=== PATIENT | male | born 1955 | race Hispanic/Latino ===

== ENCOUNTER 2017-06-25 22:43 | Inpatient (IN) | payer MEDICAID ==
--- NOTE | 2017-06-25 23:13 | ED PDOC ---
Arrival/HPI - General Chief Complaint: Palpitations Time Seen by Provider: 06/25/17 23:00 Historian: Patient - History of Present Illness Narrative History of Present Illness (Text): 06/25/17 23:12 A 62 year old male presents to the emergency department complaining of chest pain, "electric pulses that are overcoming his heart", lasting seconds and disappear for the past two months. Patient also reports mucus and dry mouth. Patient doesn't see PMD routinely, unsure of any medical problems. Patient denies any fever, chills or any other complaints at this time. Symptom Onset: Sudden Symptom Course: Unchanged Activities at Onset: Rest Context: Home Past Medical History - Provider Review Nursing Documentation Reviewed: Yes - Psychiatric Hx Substance Use: No Family/Social History - Physician Review Nursing Documentation Reviewed: Yes Family/Social History: No Known Family HX Smoking Status: no Hx Alcohol Use: No Hx Substance Use: No Allergies/Home Meds Allergies/Adverse Reactions: Allergies No Known Allergies Allergy (Verified 06/25/17 22:47) Home Medications: Home Meds Medication Instructions Recorded Confirmed No Known Home Med 06/25/17 06/25/17 Review of Systems - Physician Review All systems were reviewed & negative as marked: Yes - Review of Systems Constitutional: absent: Fevers, Other (chills) Cardiovascular: Chest Pain Physical Exam Vital Signs Reviewed: Yes Vital Signs Temp Pulse Resp BP Pulse Ox 06/25/17 23:53 97.6 F 93 H 18 101/64 100 Appearance: Positive for: Well-Appearing, Non-Toxic, Comfortable Pain Distress: None Mental Status: Positive for: Alert and Oriented X 3 - Systems Exam Head: Present: Atraumatic, Normocephalic Pupils: Present: PERRL Extroacular Muscles: Present: EOMI Conjunctiva: Present: Normal Mouth: Present: Moist Mucous Membranes Neck: Present: Normal Range of Motion Respiratory/Chest: Present: Clear to Auscultation, Good Air Exchange. No: Respiratory Distress, Accessory Muscle Use Cardiovascular: Present: Regular Rate and Rhythm, Normal S1, S2. No: Murmurs Abdomen: Present: Normal Bowel Sounds. No: Tenderness, Distention, Peritoneal Signs Back: Present: Normal Inspection Upper Extremity: Present: Normal Inspection. No: Cyanosis, Edema Lower Extremity: Present: Normal Inspection. No: Edema Neurological: Present: GCS=15, CN II-XII Intact, Speech Normal Skin: Present: Warm, Dry, Normal Color. No: Rashes Psychiatric: Present: Alert, Oriented x 3, Normal Insight, Normal Concentration Medical Decision Making ED Course and Treatment: 06/25/17 23:11 Impression: A 62 year old male with chest pain. Plan: -- EKG -- chest xray -- labs -- Aspirin -- Reassess and disposition Progress Notes: EKG: Ordered, reviewed, and independently interpreted the EKG. Rate : 86 BPM Rhythm : NSR Interpretation : rightward axis 06/26/17 00:59 Case discussed with the resident and Dr. Perales, who agree for patient to be admitted to telemetry for chest pain. 06/26/17 03:40 No active disease, as read by me. - Lab Interpretations Lab Results: 06/25/17 23:35 06/25/17 23:35 Lab Results 06/25/17 23:35: Sodium 142, Potassium 4.2, Chloride 102, Carbon Dioxide 30, Anion Gap 15, BUN 12, Creatinine 1.1, Est GFR ( Amer) > 60, Est GFR (Non- Af Amer) > 60, Random Glucose 251 H, Calcium 10.0, Total Bilirubin 0.6, AST 58, ALT 55, Alkaline Phosphatase 110, Lactate Dehydrogenase 409, Total Creatine Kinase 59, Troponin I < 0.01, Total Protein 7.0, Albumin 4.0, Globulin 3.0, Albumin/Globulin Ratio 1.3 06/25/17 23:35: PT 14.7 H, INR 1.28 H, D-Dimer, Quantitative 118 06/25/17 23:35: WBC 5.4, RBC 4.64, Hgb 14.0, Hct 41.6 L, MCV 89.7, MCH 30.2, MCHC 33.7, RDW 13.0, Plt Count 141, MPV 9.9, Gran % 48.6 L, Lymph % (Auto) 43.3 H, [place] % (Auto) 4.3, Eos % (Auto) 3.2, Baso % (Auto) 0.6, Gran # 2.61, Lymph # (Auto) 2.3, [place] # (Auto) 0.2, Eos # (Auto) 0.2, Baso # (Auto) 0.03 I have reviewed the lab results: Yes - RAD Interpretation Radiology Orders: 06/25/17 23:04 CHEST PORTABLE [RAD] Stat - EKG Interpretation Interpreted by ED Physician: Yes Type: 12 lead EKG - Medication Orders Current Medication Orders: Aspirin (Ecotrin) 81 mg PO DAILY GIN Naproxen (Anaprox Ds) 550 mg PO BID GIN Last Admin: 06/26/17 03:12 Dose: 550 mg Pantoprazole Sodium (Protonix Ec Tab) 40 mg PO 0600 GIN Discontinued Medications Aspirin (Aspirin Chewable) 324 mg PO STAT STA Stop: 06/25/17 23:05 Last Admin: 06/25/17 23:25 Dose: 324 mg - PA / YARN [employer]INNER / Resident Statement MD/DO has reviewed & agrees with the documentation as recorded. - Scribe Statement The provider has reviewed the documentation as recorded by the Pedro Clarke Provider Scribe Attestation: All medical record entries made by the Pedro were at my direction and personally dictated by me. I have reviewed the chart and agree that the record accurately reflects my personal performance of the history, physical exam, medical decision making, and the department course for this patient. I have also personally directed, reviewed, and agree with the discharge instructions and disposition. Disposition/Present on Arrival - Present on Arrival Any Indicators Present on Arrival: No History of DVT/PE: No History of Uncontrolled Diabetes: No Urinary Catheter: No History of Decub. Ulcer: No History Surgical Site Infection Following: None - Disposition Have Diagnosis and Disposition been Completed?: Yes Diagnosis: Chest pain, Acute coronary syndrome Disposition: HOSPITALIZED Disposition Time: 00:58 Patient Plan: Admission Patient Problems: Current Active Problems Problem Status Onset Chest pain Acute Acute coronary syndrome Acute Condition: GOOD
[2017-06-25 23:47] LABS: BASO # 0.03 K/mm3 (0.0-2.0); BASO % 0.6 % (0.0-3.0); EOS # 0.2 (0.0-0.7); EOS % 3.2 % (1.5-5.0); GRAN # 2.61 (1.4-6.5); GRAN % 48.6 % (50.0-68.0); LYMPH # 2.3 (1.2-3.4); LYMPH % 43.3 % (22.0-35.0); MEAN CELL VOLUME 89.7 fl (80.0-105.0); MEAN CORPUSCULAR HEMOGLOBIN 30.2 pg (25.0-35.0); MEAN CORPUSCULAR HGB CONC 33.7 g/dl (31.0-37.0); MEAN PLATELET VOLUME 9.9 fl (7.0-11.0); MONO # 0.2 (0.1-0.6); MONO % 4.3 % (1.0-6.0); RBC 4.64 10^6/uL (3.5-6.1); WHITE BLOOD COUNT 5.4 10^3/ul (4.5-11.0)
[2017-06-26 00:04] LABS: ALB/GLOB RATIO 1.3 (1.1-1.8); ALT/SGPT 55 U/L (7-56); AST/SGOT 58 U/L (17-59); BLOOD UREA NITROGEN 12 mg/dL (7-21); GFR AFRICAN-AMERICAN > 60; GFR NON-AFRICAN AMERICAN > 60
[2017-06-26 00:15] LABS: TROPONIN I < 0.01 ng/mL
[2017-06-26 00:26] LABS: INR 1.28 (0.93-1.08); PROTHROMBIN TIME 14.7 SECONDS (9.4-12.5)
--- NOTE | 2017-06-26 02:09 | CP.PCM.HP ---
<Melvin Person - Last Filed: 06/26/17 02:14> History of Present Illness - History of Present Illness History of Present Illness: 62 year old male with no significant past medical history presents with chest pain which began 3 months ago. Patient states he has had reproducible chest pain located in his left and right upper chest. He describes the pain as "electrical shocks", 5/10 on pain scale and denies any radiation the the arms or jaw. Patient said he was asleep yesterday around 1 am when he felt the electrical shock, it lasted for one minute and then went away. Patient concerned if he has "lung problem" or "cancer". He did not take any medication for the pain. Patient denies shortness of breath, nausea, vomiting, fever, chills, sore throat, recent travel or any other symptoms at this time. PMH: none significant PSH: cyst removed from head 5 years ago Allergies: none Social: denies alcohol, tobacco, or illicit drug use Family: asthma, HTN Meds: Present on Admission - Present on Admission Any Indicators Present on Admission: No Review of Systems - Constitutional Constitutional: absent: Chills, Fever, Headache, Weakness - EENT Eyes: absent: Blurred Vision, Change in Vision Ears: absent: Dizziness Nose/Mouth/Throat: absent: Nasal Congestion, Post Nasal Drip, Sore Throat - Cardiovascular Cardiovascular: absent: Dyspnea, Dyspnea on Exertion, Pain Radiating to Arm/Neck /Jaw, Lightheadedness, Palpitations, Radiating Pain, Rapid Heart Rate, Slow Heart Rate, Syncope - Respiratory Respiratory: absent: Cough, Dyspnea, Chest Congestion - Gastrointestinal Gastrointestinal: absent: Abdominal Pain, Nausea, Vomiting - Genitourinary Genitourinary: absent: Difficulty Urinating - Neurological Neurological: absent: Numbness, Tingling, Weakness Past Patient History - Past Social History Smoking Status: no - PSYCHIATRIC Hx Substance Use: No Meds Allergies/Adverse Reactions: Allergies Allergy/AdvReac Type Severity Reaction Status Date / Time No Known Allergies Allergy Verified 06/25/17 22:47 Physical Exam - Constitutional Appears: Non-toxic, No Acute Distress - Head Exam Head Exam: ATRAUMATIC, NORMAL INSPECTION, NORMOCEPHALIC - Eye Exam Eye Exam: EOMI, Normal appearance, PERRL - ENT Exam ENT Exam: Mucous Membranes Moist - Neck Exam Neck exam: Negative for: Lymphadenopathy, Tenderness - Respiratory Exam Respiratory Exam: Clear to Auscultation Bilateral, NORMAL BREATHING PATTERN - Cardiovascular Exam Cardiovascular Exam: REGULAR RHYTHM, +S1, +S2 Additional comments: pain on palpation of chest wall - GI/Abdominal Exam GI & Abdominal Exam: Normal Bowel Sounds, Soft. absent: Tenderness - Extremities Exam Extremities exam: Positive for: pedal pulses present. Negative for: pedal edema , tenderness - Neurological Exam Neurological exam: Alert, Oriented x3 Results - Vital Signs Recent Vital Signs: Last Vital Signs Temp 97.6 F 06/25/17 23:53 Pulse 93 H 06/25/17 23:53 Resp 18 06/25/17 23:53 BP 101/64 06/25/17 23:53 Pulse Ox 100 06/25/17 23:53 - Labs Result Diagrams: 06/25/17 23:35 06/25/17 23:35 Assessment & Plan - Assessment and Plan (Free Text) Assessment: 62 year old male with no significant past medical history presents with chest pain which began 3 months ago. Patient states he has had reproducible chest pain located in his left and right upper chest. Plan: 1. Chest Pain-rule out ACS -EKG pending official read -Xray pending official read -initial trop negative, follow x2 additional -TSH,T4 Pending -Hemoglobin A1c pending -lipid panel pending -cardio David evans, nancy recs -Aspirin 81mg -Naproxen 550 -daily labs GI/DVT -protonix -SCD <Efrem Perales - Last Filed: 06/26/17 04:36> Results - Vital Signs Recent Vital Signs: Last Vital Signs Temp 98 F 06/26/17 02:27 Pulse 80 06/26/17 02:27 Resp 20 06/26/17 02:27 BP 119/84 06/26/17 02:27 Pulse Ox 100 06/25/17 23:53 - Labs Result Diagrams: 06/25/17 23:35 06/25/17 23:35 Attending/Attestation - Attestation I have personally seen and examined this patient.: Yes I have fully participated in the care of the patient.: Yes I have reviewed all pertinent clinical information: Yes Notes (Text): 06/26/17 04:35 Patient was seen when he was in bed # 5 in the ER. Agree with history , physical examination, assessment and plan.
[2017-06-26 02:47] VITALS: BMI 28.2
[2017-06-26] MEDS: Naproxen 550 mg Tab PO SCH ×3 (03:12→18:04)
[2017-06-26] MEDS: Pantoprazole 40 mg EC Tab PO SCH (05:47)
[2017-06-26 06:28] LABS: BASO # 0.03 K/mm3 (0.0-2.0); BASO % 0.6 % (0.0-3.0); EOS # 0.2 (0.0-0.7); EOS % 2.8 % (1.5-5.0); GRAN # 2.17 (1.4-6.5); GRAN % 41.1 % (50.0-68.0); HEMOGLOBIN 13.4 g/dL (14.0-18.0); LYMPH # 2.6 (1.2-3.4); LYMPH % 49.3 % (22.0-35.0); MEAN CELL VOLUME 90.2 fl (80.0-105.0); MEAN CORPUSCULAR HEMOGLOBIN 29.9 pg (25.0-35.0); MEAN CORPUSCULAR HGB CONC 33.2 g/dl (31.0-37.0); MEAN PLATELET VOLUME 10.2 fl (7.0-11.0); MONO # 0.3 (0.1-0.6); MONO % 6.2 % (1.0-6.0); RBC 4.48 10^6/uL (3.5-6.1); RED CELL DISTRIBUTION WIDTH 13.2 % (11.5-14.5); WHITE BLOOD COUNT 5.3 10^3/ul (4.5-11.0)
[2017-06-26 06:48] LABS: ALB/GLOB RATIO 1.1 (1.1-1.8); ALBUMIN 3.5 g/dL (3.0-4.8); ALT/SGPT 59 U/L (7-56); AST/SGOT 49 U/L (17-59); BLOOD UREA NITROGEN 18 mg/dL (7-21); CALCIUM 9.6 mg/dL (8.4-10.5); GFR AFRICAN-AMERICAN > 60; GFR NON-AFRICAN AMERICAN > 60; HDL CHOLESTEROL 38 mg/dL (29-60)
[2017-06-26 06:51] LABS: LDL CHOLESTEROL 92 mg/dL (0-129)
[2017-06-26 06:54] LABS: TROPONIN I < 0.01 ng/mL
--- NOTE | 2017-06-26 08:37 | RAD ---
HISTORY: chest pain COMPARISON: No prior. FINDINGS: LUNGS: No active pulmonary disease. PLEURA: No significant pleural effusion identified, no pneumothorax apparent. CARDIOVASCULAR: Normal. OSSEOUS STRUCTURES: No significant abnormalities. VISUALIZED UPPER ABDOMEN: Normal. OTHER FINDINGS: None. IMPRESSION: No active disease.
[2017-06-26] MEDS ORDERED: Iohexol 350 MG/100 ML VIAL ONE (11:08)
--- NOTE | 2017-06-26 12:14 | CARD ---
APPROVED REPORT EXAM: Two-dimensional and M-mode echocardiogram with Doppler and color Doppler. INDICATION Chest Pain 2D DIMENSIONS Left Atrium (2D)3.7 (1.6-4.0cm)IVSd1.2 (0.7-1.1cm) LVDd3.8 (3.9-5.9cm)PWd1.2 (0.7-1.1cm) LVDs2.4 (2.5-4.0cm)FS (%) 37.1 % LVEF (%)67.7 (>50%) M-Mode DIMENSIONS Aortic Root2.50 (2.2-3.7cm)Aortic Cusp Exc.1.80 (1.5-2.0cm) Aortic Valve AoV Peak Avaeukch946.0cm/Cuate Peak GR.7mmHg Mitral Valve MV E Zrycbmms30.7cm/sMV A Rupcghgr86.0cm/sE/A ratio0.8 TDI E/Lateral E'0.0E/Medial E'0.0 Tricuspid Valve TR Peak Thkyyrta331qo/sRAP [id number] Peak Gr.30mmHg [id number] LEFT VENTRICLE The left ventricle is normal size. There is normal left ventricular wall thickness. The left ventricular function is normal. The left ventricular ejection fraction is within the normal range. There is normal LV segmental wall motion. Transmitral Doppler flow pattern is Grade I-abnormal relaxation pattern. RIGHT VENTRICLE The right ventricle is normal size. There is normal right ventricular wall thickness. The right ventricular systolic function is normal. ATRIA The left atrium size is normal. The right atrium size is normal. AORTIC VALVE The aortic valve is normal in structure. No aortic regurgitation is present. There is no aortic valvular stenosis. MITRAL VALVE The mitral valve is normal in structure. There is no mitral valve regurgitation noted. There is no mitral valve stenosis. TRICUSPID VALVE The tricuspid valve is normal in structure. There is mild tricuspid regurgitation. There is mild pulmonary hypertension. GREAT VESSELS The aortic root is normal in size. The IVC is normal in size and collapses >50% with inspiration. PERICARDIAL EFFUSION There is a trace loculated anterior pericardial effusion. <Conclusion> The left ventricle is normal size. There is normal left ventricular wall thickness. The left ventricular function is normal. The left ventricular ejection fraction is within the normal range. There is normal LV segmental wall motion. Transmitral Doppler flow pattern is Grade I-abnormal relaxation pattern. There is mild tricuspid regurgitation. There is mild pulmonary hypertension.
--- NOTE | 2017-06-26 12:28 | CARD ---
APPROVED REPORT EKG Measurement Heart [id number] <Conclusion> Normal sinus rhythm Possible Left atrial enlargement Rightward axis Borderline ECG
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
[2017-06-27] MEDS: Pantoprazole 40 mg EC Tab PO SCH (06:56)
[2017-06-27 08:20] LABS: BASO # 0.03 K/mm3 (0.0-2.0); BASO % 0.6 % (0.0-3.0); EOS # 0.2 (0.0-0.7); GRAN # 2.33 (1.4-6.5); GRAN % 43.9 % (50.0-68.0); HEMOGLOBIN 13.5 g/dL (14.0-18.0); LYMPH # 2.4 (1.2-3.4); LYMPH % 44.9 % (22.0-35.0); MEAN CORPUSCULAR HGB CONC 33.3 g/dl (31.0-37.0); MEAN PLATELET VOLUME 9.8 fl (7.0-11.0); MONO # 0.4 (0.1-0.6); MONO % 6.6 % (1.0-6.0); RBC 4.5 10^6/uL (3.5-6.1); RED CELL DISTRIBUTION WIDTH 13.1 % (11.5-14.5); WHITE BLOOD COUNT 5.3 10^3/ul (4.5-11.0)
[2017-06-27 08:26] LABS: ALB/GLOB RATIO 1.2 (1.1-1.8); ALBUMIN 3.6 g/dL (3.0-4.8); ALT/SGPT 46 U/L (7-56); AST/SGOT 37 U/L (17-59); BLOOD UREA NITROGEN 15 mg/dL (7-21); CALCIUM 9.9 mg/dL (8.4-10.5); GFR AFRICAN-AMERICAN > 60; GFR NON-AFRICAN AMERICAN > 60
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
[2017-06-27] MEDS ORDERED: guaiFENesin 100 mg/5 ml Syrup UD PO PRN (12:24)
--- NOTE | 2017-06-27 13:01 | CP.PCM.PN ---
<Nga Montgomery - Last Filed: 06/27/17 12:48> Subjective - Date & Time of Evaluation Date of Evaluation: 06/27/17 Time of Evaluation: 12:48 - Subjective Subjective: Nga Montgomery, PGY1, Medicine Progress Note for Dr Carnes: Patient seen and examined at bedside. No acute events overnight. Still has the cough. Denies excessive unintentional weight loss recently or hemoptysis. No cp , fever, chills, nausea, vomiting. Objective - Vital Signs/Intake and Output Vital Signs (last 24 hours): Temp Pulse Resp BP Pulse Ox 98.2 F 58 L 18 116/76 95 06/27/17 06:00 06/27/17 06:00 06/27/17 06:00 06/27/17 06:00 06/27/17 06:00 Intake and Output: 06/27/17 06/27/17 06:59 18:59 Intake Total 360 Output Total 360 Balance 0 - Medications Medications: Current Medications Aspirin (Ecotrin) 81 mg PO DAILY [facility] Last Admin: 06/27/17 09:02 Dose: 81 mg Guaifenesin (Robitussin) 100 mg PO Q4H PRN PRN Reason: Cough Pantoprazole Sodium (Protonix Ec Tab) 40 mg PO 0600 [facility] Last Admin: 06/27/17 06:56 Dose: 40 mg - Labs Labs: 06/27/17 08:00 06/27/17 08:00 PT 14.7 SECONDS (9.4-12.5) H 06/25/17 23:35 INR 1.28 (0.93-1.08) H 06/25/17 23:35 - Constitutional Appears: Non-toxic, No Acute Distress - Head Exam Head Exam: ATRAUMATIC, NORMOCEPHALIC - Eye Exam Eye Exam: EOMI, PERRL. absent: Conjunctival injection, Nystagmus, Scleral icterus Pupil Exam: NORMAL ACCOMODATION, PERRL - ENT Exam ENT Exam: Mucous Membranes Moist - Neck Exam Neck Exam: Full ROM - Respiratory Exam Respiratory Exam: Clear to Ausculation Bilateral, NORMAL BREATHING PATTERN. absent: Accessory Muscle Use, Chest Wall Tenderness, Rhonchi, Wheezes, Respiratory Distress - Cardiovascular Exam Cardiovascular Exam: RRR, +S1, +S2. absent: Murmur - GI/Abdominal Exam GI & Abdominal Exam: Soft, Normal Bowel Sounds. absent: Distended, Tenderness, Mass, Organomegaly, Rebound - Extremities Exam Extremities Exam: Normal Inspection. absent: Calf Tenderness, Pedal Edema - Back Exam Back Exam: NORMAL INSPECTION - Neurological Exam Neurological Exam: Alert, Awake, Oriented x3 - Psychiatric Exam Psychiatric exam: Normal Affect, Normal Mood - Skin Skin Exam: Dry, Normal Color, Warm Assessment and Plan - Assessment and Plan (Free Text) Assessment: 62 year old male with no significant past medical history, admitted for chest pain, ruled out ACS. Patient relayed a history of finding a right upper lung "cancer" few months ago at an ER visit, for which pt wanted further workup at this admission. Pt reports productive sputum, denies fever, chills, weight loss , hemoptysis. CT chest revealed 1.9x2.6x2.3 cm right upper lung mass. Pulmonary and IR consulted, will await recs: RUL lung mass: 2/2 malignancy vs infectious vs benign - Pulm consulted. await recs. - IR consulted. Await recs. Chest Pain-ruled out ACS -likely musculoskeletal vs GERD -Pt states that he exercises 3x a week: treadmill, bicycling and others, without any issues. -troponins negx3. -TSH,T4 normal -cholesterol 143, LDL 92, hdl 38, trig 198. -cardio consulted, chantell Hernandez recs. cleared by cardio for discharge. -Aspirin 81mg -Naproxen 550 BID -daily labs GI/DVT -protonix -SCD Discussed with Dr Carnes. <Steph Carnes - Last Filed: 06/30/17 14:20> Objective - Vital Signs/Intake and Output Vital Signs (last 24 hours): Temp Pulse Resp BP Pulse Ox 98.4 F 64 18 116/76 97 06/30/17 08:26 06/30/17 08:26 06/30/17 08:26 06/30/17 08:26 06/30/17 08:26 - Labs Labs: 06/30/17 07:00 06/30/17 07:00 PT 14.7 SECONDS (9.4-12.5) H 06/25/17 23:35 INR 1.28 (0.93-1.08) H 06/25/17 23:35 Attending/Attestation - Attestation I have personally seen and examined this patient.: Yes I have fully participated in the care of the patient.: Yes I have reviewed all pertinent clinical information, including history, physical exam and plan: Yes Notes (Text): 06/30/17 14:19 Patient was seen and examined with vice president medical affairs. Agreed with assessment and plan. 62 year old male with no significant past medical history, admitted for chest pain, ACS was rule out. Patient relayed a history of finding a right upper lung "cancer" few months ago at an ER visit, for which pt wanted further workup at this admission. CT chest revealed 1.9x2.6x2.3 cm right upper lung mass.We will consult Pulmonary. Management plan was discussed in detail with patient. Education was provided.
--- NOTE | 2017-06-27 15:59 | CP.PCM.CON ---
History of Present Illness - History of Present Illness History of Present Illness: PULMONARY CONSULT NOTE HPI Patient is 62yo male with PMhx of fomrer smoker quit 30y ago, (6pack years), presents with bilateral chest pain for several days, described as sharp, electrical, non radiating without alleviating or aggravating factors. Pt had CT chest done which showed a RUL paramediastinal mass, without lymphadenopathy. Pt endorses cough, productive of sputum, without hemoptysis, night sweats, unintentional weight loss, family history of malignancy. No other constitutional symptoms. Pt notes his chest pain is gone currently. PMH: none significant PSH: cyst removed from head 5 years ago Allergies: none Social: denies alcohol, current tobacco, or illicit drug use, former smoker quit 30y ago Family: asthma, HTN Review of Systems - Review of Systems Review of Systems: as per HPI Past Patient History - Past Social History Smoking Status: no - CARDIAC Hx Cardiac Disorders: Yes (chest pain) Hx Angina: No Hx Cardia Arrhythmia: No Hx Circulatory Problems: No Hx Congestive Heart Failure: No Hx Heart Murmur: No Hx Heart Transplant: No Hx Hypercholesterolemia: No Hx Hypertension: No Hx Internal Defibrillator: No Hx Mitral Valve Prolapse: No Hx Pacemaker: No Hx Peripheral Edema: No Hx Peripheral Vascular Disease: No - PULMONARY Hx Respiratory Disorders: No Hx Asthma: No Hx Bronchitis: No Hx Chronic Obstructive Pulmonary Disease (COPD): No Hx Emphysema: No Hx Pneumonia: No Hx Respiratory Aspiration: No Hx Respiratory Tract Infection: No Hx Sleep Apnea: No Hx Tuberculosis: No - NEUROLOGICAL Hx Neurological Disorder: No Hx Alzheimer's Disease: No HX Cerebrovascular Accident: No Hx Dementia: No Hx Dizziness: No Hx Meningitis: No Hx Migraine: No Hx Parkinson's Disease: No Hx Seizures: No Hx Transient Ischemic Attacks (TIA): No - HEENT Hx HEENT Problems: Yes (wears glasses) Hx Blind: No Hx Cataracts: No Hx Deafness: No Hx Difficulty Chewing: No Hx Epistaxis: No Hx Glaucoma: No Hx Macular Degeneration: No - RENAL Hx Chronic Kidney Disease: No Hx Dialysis: No Hx Kidney Stones: No Hx Neurogenic Bladder: No Hx Pyelonephritis: No Hx Renal (Kidney) Cancer: No Hx Renal Failure: No - ENDOCRINE/METABOLIC Hx Endocrine Disorders: No Hx Adrenal Cancer: No Hx Diabetes Insipidus: No Hx Diabetes Mellitus Type 1: No Hx Diabetes Mellitus Type 2: No Hx Hyperthyroidism: No Hx Hypothyroidism: No Hx Systemic Lupus Erythematosus: No - HEMATOLOGICAL/ONCOLOGICAL Hx Blood Disorders: No Hx AIDS: No Hx Anemia: No Hx Cancer: No Hx Chemotherapy: No Hx Cirrhosis: No Hx Hemophilia: No Hx Hepatitis A: No Hx Hepatitis B: No Hx Hepatitis C: No Hx Human Immunodeficiency Virus (HIV): No Hx Metastesis: No Hx Shingles: No Hx Sickle Cell Disease: No Hx Unexplained Bleeding: No - INTEGUMENTARY Hx Dermatological Problems: No Hx Basil Cell: No Hx Eczema: No Hx Melanoma: No Hx Psoriasis: No Hx Squamous Cell: No - MUSCULOSKELETAL/RHEUMATOLOGICAL Hx Musculoskeletal Disorders: No Hx Arthritis: No Hx Back Pain: No Hx Degenerative Joint Disease: No Hx Falls: No Hx Fractures: No Hx Gout: No Hx Herniated Disk: No Hx Myasthenia Gravis: No Hx Osteoarthritis: No Hx Osteomyelitis: No Hx Osteoporosis: No Hx Rhabdomyolysis: No Hx Spinal Stenosis: No Hx Unsteady Gait: No - GASTROINTESTINAL Hx Gastrointestinal Disorders: Yes Hx Colostomy: No Hx Crohn's Disease: No Hx Diverticulitis: No Hx Gall Bladder Disease: Yes (gallstones) Hx Gastroesophageal Reflux: Yes Hx Ileostomy: No Hx Liver Failure: No Hx Pancreatitis: No HX Swallowing Problems: No Hx Ulcer: No - GENITOURINARY/GYNECOLOGICAL Hx Genitourinary Disorders: No Hx Hematuria: No Hx Incontinence: No Hx Prostate Problems: No Hx Sexually Transmitted Disorders: No Hx Urinary Tract Infection: No - PSYCHIATRIC Hx Substance Use: No - SURGICAL HISTORY Hx Surgeries: Yes (cyst removed from scalp) Hx Amputation: No Hx Appendectomy: No Hx Cardiac Catheterization: No Hx Cholecystectomy: No Hx Coronary Stent: No Hx Gastric Bypass Surgery: No Hx Hysterectomy: No Hx Joint Replacement: No Hx Kidney Transplant: No Hx Liver Transplant: No Hx Mastectomy: No Hx Musculoskeletal Surgery: No Hx Open Heart Surgery: No Hx Orthopedic Surgery: No Hx Splenectomy: No Hx Valve Replacement: No Meds Home Medications: Home Medication List Medication Instructions Recorded Confirmed Type Aspirin [Ecotrin] 81 mg PO DAILY tabec 06/26/17 Rx Naproxen [Anaprox DS] 550 mg PO BID 15 Days tab 06/26/17 Rx Allergies/Adverse Reactions: Allergies Allergy/AdvReac Type Severity Reaction Status Date / Time No Known Allergies Allergy Verified 06/25/17 22:47 - Medications Medications: Current Medications Aspirin (Ecotrin) 81 mg PO DAILY [facility] Last Admin: 06/27/17 09:02 Dose: 81 mg Guaifenesin (Robitussin) 100 mg PO Q4H PRN PRN Reason: Cough Pantoprazole Sodium (Protonix Ec Tab) 40 mg PO 0600 [facility] Last Admin: 06/27/17 06:56 Dose: 40 mg Physical Exam - Constitutional Appears: Non-toxic, No Acute Distress - Head Exam Head Exam: NORMAL INSPECTION - Eye Exam Eye Exam: Normal appearance - ENT Exam ENT Exam: Mucous Membranes Moist - Neck Exam Neck exam: Positive for: Normal Inspection - Respiratory Exam Respiratory Exam: Clear to Auscultation Bilateral, NORMAL BREATHING PATTERN - Cardiovascular Exam Cardiovascular Exam: REGULAR RHYTHM, +S1, +S2 - GI/Abdominal Exam GI & Abdominal Exam: Normal Bowel Sounds, Soft - Extremities Exam Extremities exam: Positive for: normal inspection - Neurological Exam Neurological exam: Normal Gait, Oriented x3 - Psychiatric Exam Psychiatric exam: Normal Affect Results - Vital Signs Recent Vital Signs: Last Vital Signs Temp 98.2 F 06/27/17 06:00 Pulse 58 L 06/27/17 06:00 Resp 18 06/27/17 06:00 BP 116/76 06/27/17 06:00 Pulse Ox 95 06/27/17 06:00 - Labs Result Diagrams: 06/27/17 08:00 06/27/17 08:00 Labs: Laboratory Results - last 24 hr 06/26/17 06/27/17 06/27/17 16:35 08:00 08:00 WBC 5.3 RBC 4.50 Hgb 13.5 L Hct 40.5 L MCV 90.0 MCH 30.0 MCHC 33.3 RDW 13.1 Plt Count 123 MPV 9.8 Gran % 43.9 L Lymph % (Auto) 44.9 H Hernando % (Auto) 6.6 H Eos % (Auto) 4.0 Baso % (Auto) 0.6 Gran # 2.33 Lymph # (Auto) 2.4 Hernando # (Auto) 0.4 Eos # (Auto) 0.2 Baso # (Auto) 0.03 Sodium 142 Potassium 4.4 Chloride 106 Carbon Dioxide 28 Anion Gap 13 BUN 15 Creatinine 0.7 L Est GFR ( Amer) > 60 Est GFR (Non-Af Amer) > 60 Random Glucose 173 H Calcium 9.9 Total Bilirubin 0.7 AST 37 ALT 46 Alkaline Phosphatase 105 Troponin I < 0.01 Total Protein 6.6 Albumin 3.6 Globulin 3.0 Albumin/Globulin Ratio 1.2 - Imaging and Cardiology CT scan - chest Status: Image reviewed by me, Report reviewed by me Assessment & Plan - Assessment and Plan (Free Text) Assessment: 62yo male with RUL mass, and bronchiectasis Bronchiectasis RUL mass Cough - currently afebrile, HD stable, comfortable on room air, in NAD - RUL mass differential diagnosis can be but not limited to bronchiectasis with mucus plugging, atelectasis, malignancy - patient needs workup for bronchiectasis, possible malignancy - will need bronchoscopy, which will be scheduled tomorrow, likely to be done Sunday Recommend: - would treat for CAP, Rocephin [place] PRN - Sputum Culture - check Alpha-1 Antitripsyn - Ig Subclasses-- IgG, IgM - will need outpatient PFTs - check HIV - Bronchoscopy possibly Sunday, will confirm tomorrow with scheduling office - check procalcitonin - pulmonary will continue to follow
--- NOTE | 2017-06-27 17:14 | PN ---
DATE: SUBJECTIVE: The patient denies any chest pain or shortness of breath. PHYSICAL EXAMINATION: VITAL SIGNS: Blood pressure of 116/71, heart rate 58, temperature 98.2, and respirations of 18. HEENT: Normocephalic. CHEST: Clear. HEART: S1 and S2, regular. EXTREMITIES: No edema. Chest CT scan revealed right upper lobe mass, continuing curvilinear calcifications. The mass extends to the right hilum, but there is no associated mediastinal lymphadenopathy, possible malignancy. No other pulmonary mass. Echocardiographic study revealed normal left ventricular size, wall thickness, and ejection fraction. Mild pulmonary hypertension. ASSESSMENT: 1. Atypical chest pain, myocardial infarction was ruled out. 2. Right upper lobe lung mass. RECOMMENDATIONS: Continue current aspirin and Protonix. No further cardiac workup is indicated at this time. Rex Hernandez MD
[2017-06-28] MEDS: Pantoprazole 40 mg EC Tab PO SCH (05:27)
[2017-06-28 08:04] LABS: BASO # 0.04 K/mm3 (0.0-2.0); BASO % 0.7 % (0.0-3.0); EOS # 0.2 (0.0-0.7); EOS % 4.1 % (1.5-5.0); GRAN # 2.3 (1.4-6.5); GRAN % 39.3 % (50.0-68.0); HEMOGLOBIN 14.4 g/dL (14.0-18.0); LYMPH # 2.9 (1.2-3.4); LYMPH % 49.6 % (22.0-35.0); MEAN CELL VOLUME 89.9 fl (80.0-105.0); MEAN CORPUSCULAR HEMOGLOBIN 30.4 pg (25.0-35.0); MEAN CORPUSCULAR HGB CONC 33.9 g/dl (31.0-37.0); MEAN PLATELET VOLUME 10.2 fl (7.0-11.0); MONO # 0.4 (0.1-0.6); MONO % 6.3 % (1.0-6.0); RBC 4.73 10^6/uL (3.5-6.1); RED CELL DISTRIBUTION WIDTH 12.8 % (11.5-14.5); WHITE BLOOD COUNT 5.9 10^3/ul (4.5-11.0)
[2017-06-28 08:17] LABS: ALB/GLOB RATIO 1.2 (1.1-1.8); ALBUMIN 3.7 g/dL (3.0-4.8); ALT/SGPT 45 U/L (7-56); AST/SGOT 42 U/L (17-59); BLOOD UREA NITROGEN 16 mg/dL (7-21); CALCIUM 10.2 mg/dL (8.4-10.5); GFR AFRICAN-AMERICAN > 60; GFR NON-AFRICAN AMERICAN > 60
[2017-06-28] MEDS: cefTRIAXone 1 gm 1 GM/100 ML BAG IVPB SCH (09:31)
[2017-06-28] MEDS: Azithromycin 500MG/NS 250ml 500 MG/250 ML BAG IVPB SCH (10:50)
--- NOTE | 2017-06-28 13:30 | CP.PCM.PN ---
<Nga Montgomery - Last Filed: 06/28/17 13:24> Subjective - Date & Time of Evaluation Date of Evaluation: 06/28/17 Time of Evaluation: 13:24 - Subjective Subjective: Nga Montgomery, PGY1, Medicine Progress Note for Dr Carnes: Patient seen and examined at bedside. No acute events overnight. Reports cough that is better with Robitussin. Denies cp, fever, chills, nausea, vomiting, hemoptysis, leg swelling. Objective - Vital Signs/Intake and Output Vital Signs (last 24 hours): Temp Pulse Resp BP Pulse Ox 98.8 F 68 18 104/69 99 06/28/17 07:00 06/28/17 07:00 06/28/17 07:00 06/28/17 07:00 06/28/17 07:00 Intake and Output: 06/28/17 06/28/17 06:59 18:59 Intake Total 480 Balance 480 - Medications Medications: Current Medications Aspirin (Ecotrin) 81 mg PO DAILY [facility] Last Admin: 06/28/17 09:30 Dose: 81 mg Guaifenesin (Robitussin) 100 mg PO Q4H PRN PRN Reason: Cough Last Admin: 06/27/17 16:13 Dose: 100 mg Ceftriaxone Sodium (Rocephin 1 Gram Ivpb) 1 gm in 100 mls @ 100 mls/hr IVPB DAILY [facility] PRN Reason: Protocol Stop: 07/02/17 10:59 Last Admin: 06/28/17 09:31 Dose: 100 mls/hr Azithromycin (Zithromax 500mg In Ns) 500 mg in 250 mls @ 167 mls/hr IVPB DAILY [facility] PRN Reason: Protocol Last Admin: 06/28/17 10:50 Dose: 167 mls/hr Pantoprazole Sodium (Protonix Ec Tab) 40 mg PO 0600 [facility] Last Admin: 06/28/17 05:27 Dose: Not Given - Labs Labs: 06/28/17 07:30 06/28/17 07:30 PT 14.7 SECONDS (9.4-12.5) H 06/25/17 23:35 INR 1.28 (0.93-1.08) H 06/25/17 23:35 - Additional Findings Additional findings: - Constitutional Appears: Non-toxic, No Acute Distress - Head Exam Head Exam: ATRAUMATIC, NORMOCEPHALIC - Eye Exam Eye Exam: EOMI, PERRL. absent: Conjunctival injection, Nystagmus, Scleral icterus Pupil Exam: NORMAL ACCOMODATION, PERRL - ENT Exam ENT Exam: Mucous Membranes Moist - Neck Exam Neck Exam: Full ROM - Respiratory Exam Respiratory Exam: Clear to Ausculation Bilateral, NORMAL BREATHING PATTERN. absent: Accessory Muscle Use, Chest Wall Tenderness, Rhonchi, Wheezes, Respiratory Distress - Cardiovascular Exam Cardiovascular Exam: RRR, +S1, +S2. absent: Murmur - GI/Abdominal Exam GI & Abdominal Exam: Soft, Normal Bowel Sounds. absent: Distended, Tenderness, Mass, Organomegaly, Rebound - Extremities Exam Extremities Exam: Normal Inspection. absent: Calf Tenderness, Pedal Edema - Back Exam Back Exam: NORMAL INSPECTION - Neurological Exam Neurological Exam: Alert, Awake, Oriented x3 - Psychiatric Exam Psychiatric exam: Normal Affect, Normal Mood - Skin Skin Exam: Dry, Normal Color, Warm Assessment and Plan - Assessment and Plan (Free Text) Assessment: 62 year old male with no significant past medical history, admitted for chest pain, ruled out ACS. Patient relayed a history of finding a right upper lung "cancer" few months ago at an ER visit, for which pt wanted further workup at this admission. Pt reports productive sputum; denies fever, chills, weight loss , hemoptysis. CT chest revealed 1.9x2.6x2.3 cm right upper lung mass and RUL bronchiectasis. Pulmonary and IR consulted, will await recs: RUL lung mass/bronchiectasis: 2/2 malignancy vs infectious vs benign vs CAP - Pulm consulted. await recs. - IR consulted. Await recs. - Started Azithro and Rocephin - f/u procal, [id number], sputu culture, HIV - Bronchoscopy likely on Sunday, as per Pulm. Chest Pain-ruled out ACS -likely musculoskeletal vs GERD -Pt states that he exercises 3x a week: treadmill, bicycling and others, without any issues. -troponins negx3. -TSH,T4 normal -cholesterol 143, LDL 92, hdl 38, trig 198. -cardio consulted, David, chantell recs. cleared by cardio for discharge. -Aspirin 81mg -Naproxen 550 BID -daily labs GI/DVT -protonix -SCD Discussed with Dr Carnes. <Steph Carnes - Last Filed: 06/30/17 14:40> Objective - Vital Signs/Intake and Output Vital Signs (last 24 hours): Temp Pulse Resp BP Pulse Ox 98.4 F 64 18 116/76 97 06/30/17 08:26 06/30/17 08:26 06/30/17 08:26 06/30/17 08:26 06/30/17 08:26 - Labs Labs: 06/30/17 07:00 06/30/17 07:00 PT 14.7 SECONDS (9.4-12.5) H 06/25/17 23:35 INR 1.28 (0.93-1.08) H 06/25/17 23:35 Attending/Attestation - Attestation I have personally seen and examined this patient.: Yes I have fully participated in the care of the patient.: Yes I have reviewed all pertinent clinical information, including history, physical exam and plan: Yes Notes (Text): 06/30/17 14:38 Patient was seen and examined with medical instructor. Agreed with assessment and plan. 62 year old male with no significant past medical history, admitted for chest pain, ACS was rule out. Patient relayed a history of finding a right upper lung "cancer" few months ago at an ER visit, for which pt wanted further workup at this admission. CT chest revealed 1.9x2.6x2.3 cm right upper lung mass. Pulmonary evaluation is appreciated.Patient is scheduled for Bronchoscopy on Sunday. Management plan was discussed in detail with patient. Education was provided.
--- NOTE | 2017-06-28 13:44 | PN ---
DATE: FOLLOWUP SUBJECTIVE: The patient denies any chest pain. PHYSICAL EXAMINATION: VITAL SIGNS: Blood pressure 104/69, heart rate 68, temperature 98.8, respirations 18. HEENT: Normocephalic. CHEST: Clear. HEART: S1 and S2 regular. EXTREMITIES: No edema. LABORATORY DATA: Today's SMA-7 is within normal limits except for glucose 112. Today's hemoglobin and hematocrit, white count and platelet count are within normal limit. I did review the Pulmonary consultation, who recommended bronchoscopy, possibly Sunday, which is tomorrow. ASSESSMENT: 1. Chest pain. Myocardial infarction is ruled out. 2. Right upper lobe lung mass. RECOMMENDATIONS: 1. Continue current IV Rocephin and IV Zithromax. 2. Continue aspirin 81 mg once a day. Case was discussed with Dr. Carnes for possible bronchoscopy tomorrow. Rex Hernandez MD
--- NOTE | 2017-06-28 15:54 | CP.PCM.PN ---
Subjective - Date & Time of Evaluation Date of Evaluation: 06/28/17 Time of Evaluation: 15:52 - Subjective Subjective: Patient seen and examined, reports no major complaints. Cough is significantly improved. Objective - Vital Signs/Intake and Output Vital Signs (last 24 hours): Temp Pulse Resp BP Pulse Ox 98.8 F 68 18 104/69 99 06/28/17 07:00 06/28/17 07:00 06/28/17 07:00 06/28/17 07:00 06/28/17 07:00 Intake and Output: 06/28/17 06/28/17 06:59 18:59 Intake Total 480 Balance 480 - Medications Medications: Current Medications Aspirin (Ecotrin) 81 mg PO DAILY [facility] Last Admin: 06/28/17 09:30 Dose: 81 mg Guaifenesin (Robitussin) 100 mg PO Q4H PRN PRN Reason: Cough Last Admin: 06/27/17 16:13 Dose: 100 mg Ceftriaxone Sodium (Rocephin 1 Gram Ivpb) 1 gm in 100 mls @ 100 mls/hr IVPB DAILY [facility] PRN Reason: Protocol Stop: 07/02/17 10:59 Last Admin: 06/28/17 09:31 Dose: 100 mls/hr Azithromycin (Zithromax 500mg In Ns) 500 mg in 250 mls @ 167 mls/hr IVPB DAILY [facility] PRN Reason: Protocol Last Admin: 06/28/17 10:50 Dose: 167 mls/hr Pantoprazole Sodium (Protonix Ec Tab) 40 mg PO 0600 [facility] Last Admin: 06/28/17 05:27 Dose: Not Given - Labs Labs: 06/28/17 07:30 06/28/17 07:30 PT 14.7 SECONDS (9.4-12.5) H 06/25/17 23:35 INR 1.28 (0.93-1.08) H 06/25/17 23:35 - Constitutional Appears: Non-toxic, No Acute Distress - Eye Exam Eye Exam: Normal appearance - ENT Exam ENT Exam: Mucous Membranes Moist - Neck Exam Neck Exam: Full ROM - Respiratory Exam Respiratory Exam: Clear to Ausculation Bilateral, NORMAL BREATHING PATTERN - Cardiovascular Exam Cardiovascular Exam: REGULAR RHYTHM, +S1, +S2 - GI/Abdominal Exam GI & Abdominal Exam: Soft, Normal Bowel Sounds - Extremities Exam Extremities Exam: Full ROM, Normal Inspection - Neurological Exam Neurological Exam: Awake, Oriented x3 Assessment and Plan - Assessment and Plan (Free Text) Assessment: 62yo male with RUL mass, and bronchiectasis Bronchiectasis RUL mass Cough - currently afebrile, HD stable, comfortable on room air, in NAD - RUL mass differential diagnosis can be but not limited to bronchiectasis with mucus plugging, atelectasis, malignancy Recommend: - cont treatment for CAP, Rocephin [place] PRN - Sputum Culture follow up - check Alpha-1 Antitripsyn - Ig Subclasses-- IgG, IgM - NPO after MN for bronchoscopy tomorrow at 1130AM - GI ppx - DVT ppx
[2017-06-29] MEDS: Pantoprazole 40 mg EC Tab PO SCH (05:59)
[2017-06-29 07:10] LABS: BASO # 0.02 K/mm3 (0.0-2.0); BASO % 0.4 % (0.0-3.0); EOS # 0.2 (0.0-0.7); EOS % 3.7 % (1.5-5.0); GRAN # 2.3 (1.4-6.5); HEMOGLOBIN 14.2 g/dL (14.0-18.0); LYMPH # 2.7 (1.2-3.4); LYMPH % 48.1 % (22.0-35.0); MEAN CELL VOLUME 88.6 fl (80.0-105.0); MEAN CORPUSCULAR HGB CONC 33.8 g/dl (31.0-37.0); MEAN PLATELET VOLUME 9.7 fl (7.0-11.0); MONO # 0.4 (0.1-0.6); MONO % 6.8 % (1.0-6.0); RBC 4.74 10^6/uL (3.5-6.1); RED CELL DISTRIBUTION WIDTH 12.8 % (11.5-14.5); WHITE BLOOD COUNT 5.6 10^3/ul (4.5-11.0)
[2017-06-29] MEDS ORDERED: Albuterol-Ipratrop 3 mg / 0.5 (3 ml) UD IH PRN (07:11)
[2017-06-29 07:27] LABS: ALB/GLOB RATIO 1.1 (1.1-1.8); ALBUMIN 3.6 g/dL (3.0-4.8); ALT/SGPT 51 U/L (7-56); AST/SGOT 35 U/L (17-59); BLOOD UREA NITROGEN 14 mg/dL (7-21); CALCIUM 10.1 mg/dL (8.4-10.5); GFR AFRICAN-AMERICAN > 60; GFR NON-AFRICAN AMERICAN > 60
[2017-06-29] MEDS ORDERED: Albuterol-Ipratrop 3 mg / 0.5 (3 ml) UD IH SCH (08:00)
[2017-06-29] MEDS ORDERED: Etomidate 20 mg/10ml Inj IV ONE (10:31)
[2017-06-29] MEDS ORDERED: Propofol 10 mg/ml Inj (20 ML) ONE (10:31)
[2017-06-29] MEDS ORDERED: Midazolam 2 MG/2 ML VIAL ONE (10:32)
[2017-06-29] MEDS ORDERED: Ketamine 10 mg/ml Inj (20 ml) ONE (10:33)
[2017-06-29] MEDS ORDERED: Lidocaine 2% Jelly (30 ml) ONE (10:33)
[2017-06-29] MEDS ORDERED: Lidocaine 4% 50 mL Topical Sol (OR USE) ONE (10:34)
--- NOTE | 2017-06-29 12:05 | CP.PCM.PN ---
<Nga Montgomery - Last Filed: 06/29/17 12:01> Subjective - Date & Time of Evaluation Date of Evaluation: 06/29/17 Time of Evaluation: 12:01 - Subjective Subjective: Nga Montgomery, PGY1, Medicine Progress Note for Dr Carnes: Patient seen and examined at bedside. No acute events overnight. States that the cough has resolved and has no symptoms currently. Denies cp, fever, chills, nausea, vomiting, hemoptysis, leg swelling. Objective - Vital Signs/Intake and Output Vital Signs (last 24 hours): Temp Pulse Resp BP Pulse Ox 98.3 F 61 18 133/87 99 06/29/17 11:33 06/29/17 11:33 06/29/17 11:33 06/29/17 11:33 06/29/17 11:33 Intake and Output: 06/29/17 06/29/17 06:59 18:59 Intake Total 1200 Balance 1200 - Medications Medications: Current Medications Albuterol/Ipratropium (Duoneb 3 Mg/0.5 Mg (3 Ml) Ud) 3 ml IH [id number] PRN PRN Reason: Wheezing Aspirin (Ecotrin) 81 mg PO DAILY [facility] Last Admin: 06/28/17 09:30 Dose: 81 mg Guaifenesin (Robitussin) 100 mg PO Q4H PRN PRN Reason: Cough Last Admin: 06/27/17 16:13 Dose: 100 mg Ceftriaxone Sodium (Rocephin 1 Gram Ivpb) 1 gm in 100 mls @ 100 mls/hr IVPB DAILY [facility] PRN Reason: Protocol Stop: 07/02/17 10:59 Last Admin: 06/28/17 09:31 Dose: 100 mls/hr Azithromycin (Zithromax 500mg In Ns) 500 mg in 250 mls @ 167 mls/hr IVPB DAILY [facility] PRN Reason: Protocol Last Admin: 06/28/17 10:50 Dose: 167 mls/hr Pantoprazole Sodium (Protonix Ec Tab) 40 mg PO 0600 [facility] Last Admin: 06/29/17 05:59 Dose: Not Given - Labs Labs: 06/29/17 06:30 06/29/17 06:30 PT 14.7 SECONDS (9.4-12.5) H 06/25/17 23:35 INR 1.28 (0.93-1.08) H 06/25/17 23:35 - Additional Findings Additional findings: - Constitutional Appears: Non-toxic, No Acute Distress - Head Exam Head Exam: ATRAUMATIC, NORMOCEPHALIC - Eye Exam Eye Exam: EOMI, PERRL. absent: Conjunctival injection, Nystagmus, Scleral icterus Pupil Exam: NORMAL ACCOMODATION, PERRL - ENT Exam ENT Exam: Mucous Membranes Moist - Neck Exam Neck Exam: Full ROM - Respiratory Exam Respiratory Exam: Clear to Ausculation Bilateral, NORMAL BREATHING PATTERN. absent: Accessory Muscle Use, Chest Wall Tenderness, Rhonchi, Wheezes, Respiratory Distress - Cardiovascular Exam Cardiovascular Exam: RRR, +S1, +S2. absent: Murmur - GI/Abdominal Exam GI & Abdominal Exam: Soft, Normal Bowel Sounds. absent: Distended, Tenderness, Mass, Organomegaly, Rebound - Extremities Exam Extremities Exam: Normal Inspection. absent: Calf Tenderness, Pedal Edema - Back Exam Back Exam: NORMAL INSPECTION - Neurological Exam Neurological Exam: Alert, Awake, Oriented x3 - Psychiatric Exam Psychiatric exam: Normal Affect, Normal Mood - Skin Skin Exam: Dry, Normal Color, Warm Assessment and Plan - Assessment and Plan (Free Text) Assessment: 62 year old male with no significant past medical history, admitted for chest pain, ruled out ACS. Patient relayed a history of finding a right upper lung "cancer" few months ago at an ER visit, for which pt wanted further workup at this admission. Pt reports productive sputum; denies fever, chills, weight loss , hemoptysis. CT chest revealed 1.9x2.6x2.3 cm right upper lung mass and RUL bronchiectasis. Pulmonary and IR consulted, pr scheduled for bronchoscopy this AM: RUL lung mass/bronchiectasis: 2/2 malignancy vs infectious vs benign vs CAP - Pulm consulted. appreciate recs. - IR consulted. Await recs. - Azithro and Rocephin D2 - Procal low. HIV NR. - Sputum culture pending - f/u [id number], sputum culture - F/u bronch results, biopsy Chest Pain-ruled out ACS -likely musculoskeletal vs GERD -Pt states that he exercises 3x a week: treadmill, bicycling and others, without any issues. -troponins negx3. -TSH,T4 normal -cholesterol 143, LDL 92, hdl 38, trig 198. -cardio consulted, chantell Hernandez recs. cleared by cardio for discharge. -Aspirin 81mg -Naproxen 550 BID -daily labs GI/DVT -protonix -SCD Discussed with Dr Carnes. <Steph Carnes - Last Filed: 06/30/17 14:41> Objective - Vital Signs/Intake and Output Vital Signs (last 24 hours): Temp Pulse Resp BP Pulse Ox 98.4 F 64 18 116/76 97 06/30/17 08:26 06/30/17 08:26 06/30/17 08:26 06/30/17 08:26 06/30/17 08:26 - Labs Labs: 06/30/17 07:00 06/30/17 07:00 PT 14.7 SECONDS (9.4-12.5) H 06/25/17 23:35 INR 1.28 (0.93-1.08) H 06/25/17 23:35 Attending/Attestation - Attestation I have personally seen and examined this patient.: Yes I have fully participated in the care of the patient.: Yes I have reviewed all pertinent clinical information, including history, physical exam and plan: Yes Notes (Text): 06/30/17 14:41 Patient was seen and examined with medical insurance claims specialist. Agreed with assessment and plan. . Management plan was discussed in detail with patient. Education was provided.
[2017-06-29] MEDS: Azithromycin 500MG/NS 250ml 500 MG/250 ML BAG IVPB SCH (12:33)
[2017-06-29] MEDS: cefTRIAXone 1 gm 1 GM/100 ML BAG IVPB SCH (12:33)
[2017-06-29 15:24] LABS: IMMUNOGLOBULIN A 438.5 mg/dL (70.0-400.0); IMMUNOGLOBULIN G 1151.3 mg/dL (700.0-1600.0); IMMUNOGLOBULIN M 189.2 mg/dL (40.0-230.0)
--- NOTE | 2017-06-29 16:05 | CP.PCM.PN ---
Subjective - Date & Time of Evaluation Date of Evaluation: 06/29/17 Time of Evaluation: 11:50 - Subjective Subjective: Pt seen and examined, reports to be doing well, s/p bronchoscopy, which he tolerated well. Bronchoscopy with no endobronchial lesion, bleeding. Narrowing of the Anterior segment of RUL noted, which was brushed and washed sent for cytology and culture. Objective - Vital Signs/Intake and Output Vital Signs (last 24 hours): Temp Pulse Resp BP Pulse Ox 98.3 F 68 18 131/74 99 06/29/17 11:48 06/29/17 11:48 06/29/17 11:48 06/29/17 11:48 06/29/17 11:48 Intake and Output: 06/29/17 06/29/17 06:59 18:59 Intake Total 1200 Balance 1200 - Medications Medications: Current Medications Albuterol/Ipratropium (Duoneb 3 Mg/0.5 Mg (3 Ml) Ud) 3 ml IH [id number] PRN PRN Reason: Wheezing Aspirin (Ecotrin) 81 mg PO DAILY [facility] Last Admin: 06/29/17 09:00 Dose: Not Given Guaifenesin (Robitussin) 100 mg PO Q4H PRN PRN Reason: Cough Last Admin: 06/27/17 16:13 Dose: 100 mg Ceftriaxone Sodium (Rocephin 1 Gram Ivpb) 1 gm in 100 mls @ 100 mls/hr IVPB DAILY GIN PRN Reason: Protocol Stop: 07/02/17 10:59 Last Admin: 06/29/17 12:33 Dose: 100 mls/hr Azithromycin (Zithromax 500mg In Ns) 500 mg in 250 mls @ 167 mls/hr IVPB DAILY GIN PRN Reason: Protocol Last Admin: 06/29/17 12:33 Dose: 167 mls/hr Pantoprazole Sodium (Protonix Ec Tab) 40 mg PO 0600 [facility] Last Admin: 06/29/17 05:59 Dose: Not Given - Labs Labs: 06/29/17 06:30 06/29/17 06:30 PT 14.7 SECONDS (9.4-12.5) H 06/25/17 23:35 INR 1.28 (0.93-1.08) H 06/25/17 23:35 - Constitutional Appears: Non-toxic, No Acute Distress - Head Exam Head Exam: NORMAL INSPECTION - Eye Exam Eye Exam: Normal appearance - ENT Exam ENT Exam: Mucous Membranes Moist - Respiratory Exam Respiratory Exam: Clear to Ausculation Bilateral, NORMAL BREATHING PATTERN - Cardiovascular Exam Cardiovascular Exam: REGULAR RHYTHM, +S1, +S2 - GI/Abdominal Exam GI & Abdominal Exam: Soft, Normal Bowel Sounds - Neurological Exam Neurological Exam: Alert, Awake, Oriented x3 Assessment and Plan - Assessment and Plan (Free Text) Assessment: 62yo male with RUL mass, and bronchiectasis s/p bronchoscopy Bronchiectasis RUL mass Cough - pt clinically improving, doing well - s/p bronchoscopy which showed NO endobronchial lesion, NO active bleeding. - RUL anterior segment (portion on CT with lesion), was narrowed and friable, this area was washed and brush biopsied. (please refer to the procedure note for further details) Brushings and washings sent for cultures, AFB, fungal, and cytology. Recommend: - cont treatment for CAP, Rocephin Chrisithro - Dushelbybs PRN - please await cytology and cultures from bronchoscopy - patient will need further follow up as outpatient with repeat CT chest within 2-4 weeks, and possible CT surgery/interventional pulmonary evaluation for biopsy if workup here is negative - GI ppx - DVT ppx - pulmonary will continue to follow
[2017-06-30 01:35] VITALS: RESP 18; O2SAT 97
[2017-06-30] MEDS: Pantoprazole 40 mg EC Tab PO SCH (05:47)
[2017-06-30 07:56] LABS: BASO # 0.01 K/mm3 (0.0-2.0); BASO % 0.2 % (0.0-3.0); EOS # 0.3 (0.0-0.7); EOS % 4.3 % (1.5-5.0); GRAN # 2.85 (1.4-6.5); GRAN % 46.8 % (50.0-68.0); HEMOGLOBIN 13.9 g/dL (14.0-18.0); LYMPH # 2.6 (1.2-3.4); LYMPH % 42.1 % (22.0-35.0); MEAN CELL VOLUME 88.2 fl (80.0-105.0); MEAN CORPUSCULAR HEMOGLOBIN 29.2 pg (25.0-35.0); MEAN CORPUSCULAR HGB CONC 33.1 g/dl (31.0-37.0); MEAN PLATELET VOLUME 10.1 fl (7.0-11.0); MONO # 0.4 (0.1-0.6); MONO % 6.6 % (1.0-6.0); RBC 4.76 10^6/uL (3.5-6.1); RED CELL DISTRIBUTION WIDTH 12.7 % (11.5-14.5); WHITE BLOOD COUNT 6.1 10^3/ul (4.5-11.0)
[2017-06-30 08:07] LABS: ALB/GLOB RATIO 1.2 (1.1-1.8); ALBUMIN 3.6 g/dL (3.0-4.8); ALT/SGPT 46 U/L (7-56); AST/SGOT 41 U/L (17-59); BLOOD UREA NITROGEN 13 mg/dL (7-21); CALCIUM 9.9 mg/dL (8.4-10.5); GFR AFRICAN-AMERICAN > 60; GFR NON-AFRICAN AMERICAN > 60
[2017-06-30 08:27] VITALS: BP 116/76; PULSE 64; TEMP 98.4
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
[2017-06-30] MEDS: Azithromycin 500MG/NS 250ml 500 MG/250 ML BAG IVPB SCH (09:47)
[2017-06-30] MEDS: cefTRIAXone 1 gm 1 GM/100 ML BAG IVPB SCH (09:47)
[2017-07-03 09:21] LABS: IGG SUBCLASS 1 421 mg/dL (382-929); IGG SUBCLASS 2 475 mg/dL (241-700); IGG SUBCLASS 3 89 mg/dL (22-178); IGG SUBCLASS 4 10.7 mg/dL (4.0-86.0)
== END 2017-06-30 14:15 | disposition home or self-care (01) | DRG 100 ==
LOC: ED 22:43 → ERH 06-26 00:59 → 2RSO 06-26 02:10 → 2A 06-27 06:58 → 5RSO 06-27 18:31
PROVIDERS: ADMIT Internal Medicine; ATTEND Internal Medicine
PROC: 0BC48ZZ Extirpation of Matter from Right Upper Lobe Bronchus, Via Natural or Artificial Opening Endoscopic (ICD-10-PCS; principal; 2017-06-29 11:30)
DX: R91.8 Other nonspecific abnormal finding of lung field (principal); I24.9 Acute ischemic heart disease, unspecified; J47.9 Bronchiectasis, uncomplicated; K21.9 Gastro-esophageal reflux disease without esophagitis; R07.89 Other chest pain; R40.2412 Glasgow coma scale score 13-15, at arrival to emergency department; Z79.82 Long term (current) use of aspirin; Z87.891 Personal history of nicotine dependence; Z82.5 Family history of asthma and other chronic lower respiratory diseases; Z82.49 Family history of ischemic heart disease and other diseases of the circulatory system